=== PATIENT | female | born 1995 | race Caucasian/White ===

== ENCOUNTER 2018-01-17 02:30 | Emergency (ER) | payer OTHER ==
[~2018-01-17] VITALS: Ht 172.7 cm; Wt 79.4 kg
[2018-01-17 02:33] VITALS: BP 137/90
--- NOTE | 2018-01-17 02:33 | NUR ---
PATIENT PRESENTS TO ED WITH SUPRAPUBIC LOWER ABDOMINAL PAIN, 1 DAY WITH 6/10 DULL PAIN. PT STATES , FOUND OUT TWO DAYS AGO. DENIES N/V/D; SKIN IS PINK/WARM/DRY; AAOX4 WITH EVEN AND STEADY GAIT; LUNGS CLEAR BL; HR EVEN AND REGULAR; PT DENIES VAGINAL BLEEDING/DISCHARGE/SPOTTING; VSS; PATIENT POSITIONED FOR COMFORT; HOB ELEVATED; BEDRAILS UP X2; BED DOWN. ER MD MADE AWARE OF PT STATUS.
--- NOTE | 2018-01-17 02:33 | NUR ---
TO BED # 9 AMBULATORY, REPORT GIVEN TO KELLY HUFFMAN
--- NOTE | 2018-01-17 02:46 | NUR ---
Dr. Yoon evaluating patient at bedside.
--- NOTE | 2018-01-17 03:04 | NUR ---
Ultrasound at bedside.
[2018-01-17 03:30] LABS: BARBITURATE, URINE NEG. ng/ml (NEG <=200); BENZODIAZEPINE, URINE NEG. ng/mL (NEG <=200); CANNABINOID, URINE POS. ng/mL (NEG <=50); COCAINE, URINE NEG. ng/mL (NEG <=300); OPIATE, URINE NEG. ng/mL (NEG <=2000); PHENCYCLIDINE SCREEN,URINE NEG. ng/mL (NEG <=25)
[2018-01-17 03:43] LABS: APPEARANCE,URINE CLEAR (CLEAR); BILIRUBIN,URINE NEGATIVE (NEGATIVE); BLOOD, URINE 1+ (NEGATIVE); COLOR,URINE YELLOW (YELLOW); LEUKOCYTE ESTERASE ,URINE NEGATIVE (NEGATIVE); NITRITE, URINE NEGATIVE (NEGATIVE); RBC,URINE 0-5 (RARE) /HPF (0-5); UGLUCOSE NEGATIVE (NEGATIVE); WBC,URINE 0-5 (RARE) /HPF (0-5)
[2018-01-17 04:14] LABS: HEMATOCRIT 42.8 % (36-48); HEMOGLOBIN 14.3 g/dL (12.0-16.0); MEAN CORPUSCULAR HEMOGLOBIN 30 pg (27-31); MEAN CORPUSCULAR HGB CONC 33 g/dL (33-37); PLATELET COUNT (AUTO) 292 K/uL (140-450); RED BLOOD CELL COUNT(AUTO) 4.76 MIL/uL (4.20-5.40); RED CELL DISTRIBUTION WIDTH 14.2 % (11.6-13.7)
[2018-01-17 04:23] LABS: EOSINOPHILS % (MANUAL) 3 % (0-4); LYMPHOCYTES % (MANUAL) 24 % (20-46); MONOCYTES % (MANUAL) 4 % (5-12); WHITE BLOOD COUNT (AUTO) 17.3 K/uL (4.8-10.8)
[2018-01-17 05:10] VITALS: BP 118/67
--- NOTE | 2018-01-17 05:13 | NUR ---
Patient discharged with v/s stable. Written and verbal after care instructions given and explained. Patient alert, oriented and verbalized understanding of instructions. Ambulatory with steady gait. All questions addressed prior to discharge. ID band removed. Patient advised to follow up with PMD. Rx of ACETAMINIOHEN 500MG, [facility]HA SOFTGEL given. Patient educated on indication of medication including possible reaction and side effects. Opportunity to ask questions provided and answered.
== END 2018-01-17 05:13 | disposition home or self-care (01) ==
LOC: MED 02:30
DX: O26.891 Other specified pregnancy related conditions, first trimester (principal); R10.9 Unspecified abdominal pain; Z3A.01 Less than 8 weeks gestation of pregnancy
CPT/HCPCS: 36415; 76801; 80305; 81001; 81025; 84702; 85025; 86900; 86901; 99285; Q0092

== ENCOUNTER 2020-06-11 17:55 | Emergency (ER) | payer MEDICAID, OTHER ==
[~2020-06-11] VITALS: Ht 172.7 cm; Wt 106.6 kg
[2020-06-11 18:00] VITALS: BP 118/65
--- NOTE | 2020-06-11 18:04 | NUR ---
Pt taken to lobby to wait for further evaluation.
--- NOTE | 2020-06-11 18:38 | NUR ---
Pt ambulated to XR with clinical research tech.
--- NOTE | 2020-06-11 18:56 | NUR ---
Patient ambulated to chair C. RN evaluating the patient.
--- NOTE | 2020-06-11 19:00 | NUR ---
PT SEEN AND EXAMINED BY RUIZ MATTHEWS. NO NURSUING CARE PROVIDED FOR THE PATIENT
[2020-06-11] MEDS ORDERED: NAPR-54 PO (19:55)
--- NOTE | 2020-06-11 19:57 | NUR ---
ULNER GUTTER SPLINT PLACED ON PT R HAND, FASTENED WITH FILOMENA WRAP. +CSM
== END 2020-06-11 20:14 | disposition home or self-care (01) ==
LOC: MED 17:55
DX: S60.221A Contusion of right hand, initial encounter (principal); W22.01XA Walked into wall, initial encounter; Y93.89 Activity, other specified; Y92.89 Other specified places as the place of occurrence of the external cause; Y99.8 Other external cause status
CPT/HCPCS: 73130; 99283

== ENCOUNTER 2020-09-06 17:01 | Emergency (ER) | payer SELFPAY ==
[~2020-09-06] VITALS: Ht 170.2 cm; Wt 104.3 kg
[~2020-09-06 17:01] MED LIST: NAPR-54 PO
[2020-09-06 17:18] VITALS: BP 116/63
--- NOTE | 2020-09-06 17:26 | NUR ---
patient ambulated to bed 10
--- NOTE | 2020-09-06 17:59 | NUR ---
25/F presents to ED with c/o left ear pain. Patient states she has had bilateral "ear itching for 6 months," stating she occassionally notices clear fluid coming from her left ear. Patient states over the last 3 days she has had worsening ear pain and noticing more "fluid coming out" from her left ear. Patient describes it as intermittent sharp 8/10 pain that she states worsens if she touches her ear or opens her jaw, patient took Tylenol at home today with some relief, states her hearing feels muffled.
[2020-09-06] MEDS ORDERED: OFLO5SOL27 LEFT EAR (18:08)
[2020-09-06] MEDS ORDERED: IBUP-1842 PO (18:08)
[2020-09-06 18:39] VITALS: BP 116/63
--- NOTE | 2020-09-06 18:39 | NUR ---
Patient discharged with v/s stable. Written and verbal after care instructions given and explained. Patient alert, oriented and verbalized understanding of instructions. Ambulatory with steady gait. All questions addressed prior to discharge. ID band removed. Patient advised to follow up with PMD. Rx of Ofloxacin and Ibuprofen given. Patient educated on indication of medication including possible reaction and side effects. Opportunity to ask questions provided and answered.
== END 2020-09-06 18:39 | disposition home or self-care (01) ==
LOC: MED 17:01
DX: H60.92 Unspecified otitis externa, left ear (principal); Z79.899 Other long term (current) drug therapy
CPT/HCPCS: 99283